=== PATIENT | male | born 1965 | race Hispanic/Latino ===

== ENCOUNTER 2020-08-15 10:07 | Emergency (ER) | payer OTHER ==
[~2020-08-15] VITALS: Ht 172.7 cm; Wt 68.0 kg
[2020-08-15] MEDS ORDERED: ACETAMINOPHEN/CODEINE 300MG - 30MG TAB PO ONE (10:45)
[2020-08-15] MEDS ORDERED: TYLENOL # 31 EA PO (11:13)
[2020-08-15] MEDS ORDERED: ZOFRAN4 MG SL (11:13)
[2020-08-15 11:24] VITALS: BP 128/84
== END 2020-08-15 11:25 | disposition home or self-care (01) ==
LOC: ER 10:28
DX: U07.1 COVID-19 (principal); R05 Cough; N42.9 Disorder of prostate, unspecified
CPT/HCPCS: 71045; 99283; U0002

== ENCOUNTER 2020-10-18 11:44 | Emergency (ER) | payer OTHER ==
[~2020-10-18] VITALS: Ht 172.7 cm; Wt 68.0 kg
[~2020-10-18 11:44] MED LIST: TYLENOL # 31 EA PO; ZOFRAN4 MG SL
[2020-10-18] MEDS ORDERED: CLOTRIMAZOLE15 GM TOP (12:02)
[2020-10-18 12:42] VITALS: BP 126/69
== END 2020-10-18 12:45 | disposition home or self-care (01) ==
LOC: ER 11:48
DX: N48.1 Balanitis (principal)
CPT/HCPCS: 99283